=== PATIENT | female | born 1960 | race Caucasian/White ===

== ENCOUNTER → 2020-12-16 09:39 | Outpatient (CLI) | payer OTHER, SELFPAY ==
[2020-12-16 10:27] LABS: Hematocrit 40.5 % (36-46); Hemoglobin 13.9 g/dL (12.0-16.0); Mean Corpuscular HGB Conc 34.3 % (30-36); Mean Corpuscular Hemoglobin 32.8 PG (26-34); Mean Corpuscular Volume 95.6 fL (80-100); Platelet Count 172 X10^3/uL (150-400); Red Blood Cell Count 4.24 X10^6/uL (4.0-5.2); Red Cell Distribution Width 12.2 % (11.6-14.8); White Blood Cell Count 3.8 X10^3/uL (4.5-11.0)
[2020-12-16 10:44] LABS: Alanine Aminotransferase 31 IU/L (<35); Albumin Globulin Ratio 1.3 (1.0-2.8); Alkaline Phosphatase 75 U/L (38-126); Aspartate Aminotransferase 33 IU/L (14-36); BUN Creatinine Ratio 30.2 (6-22); Bilirubin Total 0.4 mg/dL (0.2-1.3); Blood Urea Nitrogen 19 mg/dL (7-17); Calcium 9.3 mg/dL (8.4-10.2); Carbon Dioxide 30 mmol/L (22-32); Chloride 103 mmol/L (98-107); Cholesterol 172 mg/dL (140-199); Estimated Glomerular Filt Rate > 60.0 mL/min (>60); Glucose 91 mg/dL (80-110); HDL Cholesterol 93 mg/dL (40-60); HEMOLYSIS < 15 (0-50); LDL Cholesterol Calculated 70 mg/dL (<100); Potassium 4.4 mmol/L (3.4-5.1); Sodium 138 mmol/L (137-145); Triglycerides 44 mg/dL (35-150)
[2020-12-16 11:16] LABS: TSH w/ Reflex to FT4 0.52 uIU/mL (0.47-4.68)
== END ==
PROVIDERS: PCP Nurse Practitioner Family; Referring Provider Nurse Practitioner Family; Visit Provider Nurse Practitioner Family
DX: E06.3 Autoimmune thyroiditis (principal); Z00.00 Encounter for general adult medical examination without abnormal findings; Z13.6 Encounter for screening for cardiovascular disorders
CPT/HCPCS: 36415; 80053; 80061; 84443; 85027

== ENCOUNTER → 2022-02-02 16:56 | Outpatient (CLI) | payer OTHER, SELFPAY ==
--- NOTE | 2022-02-02 17:09 | DI.RAD.S_ITS ---
PROCEDURE: XR THORACIC SPINE 3V INDICATIONS: Progressive upper back pain with a history of scoliosis TECHNIQUE: Three views of the thoracic spine were acquired. COMPARISON: None. FINDINGS: Bones: There is rightward curvature of the midthoracic spine. Degenerative disc and endplate change in the lower thoracic spine with trace retrolisthesis at T10-11 and T11-12. Minor multilevel degenerative endplate spurring. No acute fractures seen. No suspicious bony lesions. Twelve pairs of ribs are noted, and appear intact where visualized. Soft tissues: No paravertebral stripe thickening. IMPRESSION: 1. Mild degenerative changes. 2. No significant subluxation or visible fracture. Dictated by: Darlene Aldana M.D. on 02/03/2022 at 11:19 Approved by: Darlene Aldana M.D. on 02/03/2022 at 11:23
--- NOTE | 2022-02-02 17:09 | DI.RAD.S_ITS ---
PROCEDURE: XR LUMBAR SPINE 2-3V INDICATIONS: Progressive lower back pain history of scoliosis TECHNIQUE: 3 views of the lumbar spine were acquired. COMPARISON: None. FINDINGS: Bones: 5 lumbar type vertebral bodies. Mild S shaped spinal curvature with right lateral listhesis of L3 on L4. Moderate overall spondylosis. This spine is obscured by bowel gas. Soft tissues: Prominent bowel gas and stool burden. IMPRESSION: Moderate spondylosis with mild S-shaped spinal curvature and right lateral listhesis of L3 on L4. Consider MRI to further evaluate if necessary. Prominent bowel gas and stool burden. Dictated by: Tenzin Gunter M.D. on 02/03/2022 at 13:20 Approved by: Tenzin Gunter M.D. on 02/03/2022 at 13:22
--- NOTE | 2022-02-02 17:09 | DI.RAD.S_ITS ---
PROCEDURE: XR KNEE RT 3V INDICATIONS: Progressive right knee pain and swelling with activity TECHNIQUE: Three views of the knee were acquired. COMPARISON: None. FINDINGS: Bones: No fractures or dislocations. No suspicious bony lesions. Mild medial compartment joint space loss and slight marginal spurring. Soft tissues: No joint effusion. No suspicious soft tissue calcifications. IMPRESSION: 1. Mild degenerative change. Dictated by: Darlene Aldana M.D. on 02/03/2022 at 11:18 Approved by: Darlene Aldana M.D. on 02/03/2022 at 11:18
[2022-02-02 17:51] LABS: Free T4, Direct Thyroxine 1.68 ng/dL (0.78-2.19)
[2022-02-02 18:06] LABS: Thyroid Stimulating Hormone < 0.015 uIU/mL (0.47-4.68)
[2022-02-02 18:13] LABS: Erythrocyte Sedimentation Rate 17 MM/HR (0-20)
[2022-02-03 22:46] LABS: Thyroid Peroxidase Antibodies 197 IU/mL (0-34)
== END ==
PROVIDERS: PCP Family Medicine; Referring Provider Family Medicine; Visit Provider Family Medicine
DX: E06.3 Autoimmune thyroiditis (principal); M25.561 Pain in right knee; M41.9 Scoliosis, unspecified
CPT/HCPCS: 36415; 72072; 72100; 73562; 84439; 84443; 85651; 86376

== ENCOUNTER → 2022-04-13 10:57 | Outpatient (CLI) | payer OTHER, SELFPAY ==
--- NOTE | 2022-04-13 11:46 | DI.RAD.S_ITS ---
PROCEDURE: XR KNEE RT 3V INDICATIONS: Progressive right knee pain TECHNIQUE: 3 views of the knee were acquired. COMPARISON: [facility], , XR KNEE RT 3V, 02/02/2022, 17:15. FINDINGS: Bones: No fractures or dislocations. No suspicious bony lesions. Moderate narrowing of the lateral femoral tibial joint and tricompartmental periarticular osteophyte formation. Mild lateral patellar tilt and migration. Soft tissues: Small joint effusion. No suspicious soft tissue calcifications. IMPRESSION: 1. Tricompartmental knee joint degeneration, most notably involving the medial femorotibial joint slightly progressed compared to prior exam. Dictated by: Jose Carlos Harrison [facility] Interpreted: Ravin Hollidya MD on 04/13/2022 at 13:16 Transcribed by: JON on 04/13/2022 at 13:16 Approved by: Jaret Holliday M.D. on 04/17/2022 at 12:22
== END ==
PROVIDERS: PCP Family Medicine; Referring Provider Family Medicine; Visit Provider Family Medicine
DX: M25.561 Pain in right knee (principal); G89.29 Other chronic pain; M17.11 Unilateral primary osteoarthritis, right knee
CPT/HCPCS: 73562